=== PATIENT | female | born 1970 | race Caucasian/White ===

== ENCOUNTER 2020-06-28 22:06 | Emergency (ER) | payer OTHER ==
[2020-06-29 01:33] LABS: HEMOGLOBIN 13.2 gm/dl (12.3-15.3); WHITE BLOOD COUNT 8.3 K/UL (4.5-11.0)
[2020-06-29 01:53] LABS: BUN/CREATININE RATIO 11 (0-10)
== END 2020-06-29 05:46 | disposition home or self-care (01) ==
LOC: ER1 22:06
PROVIDERS: Physician Assistant
DX: R07.9 Chest pain, unspecified (principal); F17.200 Nicotine dependence, unspecified, uncomplicated
CPT/HCPCS: 71045; 80053; 82550; 82553; 83874; 83880; 84484; 85025; 85610; 85730; 93005; 96374; 99285; J2270

== ENCOUNTER → 2020-07-23 | Outpatient (CLI) | payer OTHER | LOC: KOH-I 15:37 | DX: S92.351A Displaced fracture of fifth metatarsal bone, right foot, initial encounter for closed fracture (principal) | CPT/HCPCS: 73630 ==

== ENCOUNTER 2020-09-04 19:39 | Emergency (ER) | payer OTHER ==
[2020-09-04 21:21] LABS: HEMOGLOBIN 13.1 gm/dl (12.3-15.3); RED BLOOD COUNT 3.9 M/UL (4.00-5.10); WHITE BLOOD COUNT 6.6 K/UL (4.5-11.0)
[2020-09-04] MEDS ORDERED: Voltaren Gel 1 % TOP (22:47)
== END 2020-09-04 23:00 | disposition home or self-care (01) ==
LOC: ER1 19:39
PROVIDERS: Physician Assistant
DX: M79.661 Pain in right lower leg (principal); K21.9 Gastro-esophageal reflux disease without esophagitis; Z79.899 Other long term (current) drug therapy; F17.200 Nicotine dependence, unspecified, uncomplicated; Z90.49 Acquired absence of other specified parts of digestive tract
CPT/HCPCS: 73562; 73610; 73630; 80048; 83735; 85025; 85379; 99283